=== PATIENT | female | born 1980 | race Caucasian/White ===

== ENCOUNTER 2017-11-07 14:14 | Emergency (ER) | payer BC ==
--- NOTE | 2017-11-07 14:55 | EDM.PDOC ---
ED HPI GENERAL MEDICAL PROBLEM - General Chief Complaint: Genitourinary Problem Stated Complaint: POSSIBLE BLADDER INFECTION Time Seen by Provider: 11/07/17 14:31 Source of Information: Reports: Patient History Limitations: Reports: No Limitations - History of Present Illness INITIAL COMMENTS - FREE TEXT/NARRATIVE: 37 yo female presents to ER with foul smelling urine, increase in frequency and mild dysuria. last UTI was 1-2 months ago. general illness without fever. flank Pain Score (Numeric/FACES): 7 - Related Data Allergies Allergy/AdvReac Type Severity Reaction Status Date / Time acetaminophen [From Vicodin] Allergy Hives Verified 11/07/17 14:33 gabapentin Allergy Nausea Verified 11/07/17 14:33 hydrocodone [From Vicodin] Allergy Hives Verified 11/07/17 14:33 ibuprofen Allergy Nausea Verified 11/07/17 14:33 Home Meds: Home Meds Cholecalciferol (Vitamin D3) [Vitamin D3] 5,000 unit PO DAILY 11/07/17 [History] FLUoxetine HCl [Prozac] 80 mg PO DAILY 11/07/17 [History] Propranolol HCl [Propranolol] 60 mg PO DAILY 11/07/17 [History] QUEtiapine [SEROquel] 12.5 mg PO DAILY 11/07/17 [History] Topiramate 25 mg PO DAILY 11/07/17 [History] Past Medical History Respiratory History: Reports: Asthma [employer] History: Reports: Neurological History: Reports: Migraines Psychiatric History: Reports: Anxiety, Depression - Past Surgical History HEENT Surgical History: Reports: Adenoidectomy, Tonsillectomy, Other (See Below) Other HEENT Surgeries/Procedures: sinus surgery GI Surgical History: Reports: Cholecystectomy Female Surgical History: Reports: Section, Hysterectomy, Other (See Below) Other Female Surgeries/Procedures: bladder suspension Musculoskeletal Surgical History: Reports: Other (See Below) Other Musculoskeletal Surgeries/Procedures:: back surgery Social & Family History - Tobacco Use Smoking Status *Q: Never Smoker - Recreational Drug Use Recreational Drug Use: No ED ROS GENERAL - Review of Systems Review Of Systems: See Below Constitutional: Reports: Malaise, Fatigue. Denies: Fever, Chills Respiratory: Denies: Shortness of Breath, Wheezing Cardiovascular: Denies: Chest Pain GI/Abdominal: Denies: Abdominal Pain, Constipation, Diarrhea, Nausea Skin: Denies: Rash ED EXAM, GI/ABD - Physical Exam Exam: See Below Exam Limited By: No Limitations General Appearance: Alert, WD/WN, No Apparent Distress Respiratory/Chest: No Respiratory Distress, Lungs Clear, Normal Breath Sounds. No: Crackles, Rhonchi, Wheezing Cardiovascular: Regular Rate, Rhythm, No Edema, No Murmur GI/Abdominal Exam: Soft, Non-Tender, No Distention Back Exam: CVA Tenderness (R) (mild) Neurological: Alert, Oriented Skin Exam: Warm, Dry, Intact. No: Rash Course - Vital Signs Last Recorded V/S: Last Vital Signs Temp 36.3 C 11/07/17 14:29 Pulse 76 11/07/17 14:29 Resp 16 11/07/17 14:29 BP 106/52 L 11/07/17 14:29 Pulse Ox 99 11/07/17 14:29 - Orders/Labs/Meds Orders: Active Orders 24 hr Category Date Time Status UA W/MICROSCOPIC [URIN] Urgent Lab 11/07/17 14:25 Ordered Labs: Laboratory Tests 11/07/17 Range/Units 14:25 Urine Color Yellow Urine Appearance Cloudy Urine pH 6.5 (4.5-8.0) Ur Specific [place] 1.010 (1.008-1.030) Urine Protein Negative (NEGATIVE) mg/dL Urine Glucose (UA) Normal (NEGATIVE) mg/dL Urine Ketones Negative (NEGATIVE) mg/dL Urine Occult Blood Moderate (NEGATIVE) Urine Nitrite Negative (NEGATIVE) Urine Bilirubin Negative (NEGATIVE) Urine Urobilinogen Normal (NORMAL) mg/dL Ur Leukocyte Esterase Large (NEGATIVE) Urine RBC 5-10 H (0-5) Urine WBC Semi-packed H (0-5) Ur Epithelial Cells Moderate Amorphous Sediment Few Urine Bacteria Moderate Urine Mucus Few - Re-Assessments/Exams Free Text/Narrative Re-Assessment/Exam: 11/07/17 15:06 UA positive bacteria and semi-packed WBC. will tx with Bactrim DS and instructed pt to follow-up with PCP for repeat UA following antibiotics completion. Departure - Departure Time of Disposition: 15:06 Disposition: Home, Self-Care 01 Condition: Good Clinical Impression: UTI, Urinary tract infectious disease - Discharge Information *PRESCRIPTION DRUG MONITORING PROGRAM REVIEWED*: Not Applicable *COPY OF PRESCRIPTION DRUG MONITORING REPORT IN PATIENT LNIDSEY: Not Applicable Instructions: Urinary Tract Infection, Adult Referrals: PCP,None [Primary Care Provider] - Forms: ED Department Discharge Additional Instructions: BActrim DS 1 tablet twice daily for 3 days increase fluid intake with goal of 1.5-2 liters per day follow-up with primary care on completion of antibiotics for repeat UA to assure clearance of infection
== END 2017-11-07 15:26 | disposition home or self-care (01) ==
LOC: JP.ED 14:14
DX: N39.0 Urinary tract infection, site not specified (principal); B96.89 Other specified bacterial agents as the cause of diseases classified elsewhere; Z90.710 Acquired absence of both cervix and uterus; Z88.6 Allergy status to analgesic agent; Z88.8 Allergy status to other drugs, medicaments and biological substances; Z79.899 Other long term (current) drug therapy
CPT/HCPCS: 81001; 87086; 87088; 87186; 99284